=== PATIENT | male | born 1980 | race American Indian/Alaskan Native ===

== ENCOUNTER 2024-09-08 13:44 | Emergency (ER) | payer OTHER ==
[~2024-09-08] VITALS: Ht 170.2 cm; Wt 77.3 kg
[2024-09-08 13:51] VITALS: TEMP 98.3
[2024-09-08] MEDS ORDERED: CEPH-558 PO (14:02)
[2024-09-08] MEDS ORDERED: SULF-261 PO (14:02)
[2024-09-08 14:15] VITALS: BP 124/84; PULSE 85; RESP 17; O2SAT 98
[2024-09-08] MEDS: SULFAMETHOX/TRIMETH DS 800-160 MG/TABLET PO ONE (14:16)
[2024-09-08] MEDS: CEPHALEXIN MONOHYDRATE 500 MG CAPSULE PO ONE (14:16)
== END 2024-09-08 14:51 | disposition home or self-care (01) ==
LOC: EMS 13:44
DX: L02.415 Cutaneous abscess of right lower limb (principal); I10 Essential (primary) hypertension; Z71.6 Tobacco abuse counseling; Z98.890 Other specified postprocedural states
CPT/HCPCS: 99283

== ENCOUNTER 2024-09-09 08:34 | Emergency (ER) | payer OTHER ==
[~2024-09-09] VITALS: Ht 170.2 cm; Wt 72.7 kg
[~2024-09-09 08:34] MED LIST: CEPH-558 PO; SULF-261 PO
[2024-09-09 08:51] VITALS: BP 148/84; PULSE 81; RESP 16; TEMP 98.2; O2SAT 100
== END 2024-09-09 09:52 | disposition home or self-care (01) ==
LOC: EMS 08:35
DX: L02.415 Cutaneous abscess of right lower limb (principal); I10 Essential (primary) hypertension
CPT/HCPCS: 97597; 99283

== ENCOUNTER 2024-09-27 07:16 | Emergency (ER) | payer OTHER ==
[~2024-09-27] VITALS: Ht 170.2 cm; Wt 72.7 kg
[2024-09-27 07:24] VITALS: BP 146/102; PULSE 81; RESP 19; TEMP 98.6; O2SAT 100
[2024-09-27] MEDS ORDERED: IBUP-1492 PO (08:26)
== END 2024-09-27 09:04 | disposition home or self-care (01) ==
LOC: EMS 07:18
DX: G89.29 Other chronic pain (principal); M25.512 Pain in left shoulder; M25.511 Pain in right shoulder; I10 Essential (primary) hypertension; F17.200 Nicotine dependence, unspecified, uncomplicated
CPT/HCPCS: 99281; 99282; Z7502